=== PATIENT | male | born 1990 | race Caucasian/White ===

== ENCOUNTER 2023-03-09 06:56 | Emergency (ER) | payer BC ==
[~2023-03-09] VITALS: Ht 180.3 cm; Wt 99.8 kg
[2023-03-09] MEDS ORDERED: TRAMADOL HCL50 MG PO (10:17)
== END 2023-03-09 10:35 | disposition home or self-care (01) ==
LOC: ER 06:56
DX: S42.301A Unspecified fracture of shaft of humerus, right arm, initial encounter for closed fracture (principal); W19.XXXA Unspecified fall, initial encounter; Y93.9 Activity, unspecified; Y92.9 Unspecified place or not applicable; Y99.9 Unspecified external cause status